=== PATIENT | male | born 1955 | race Caucasian/White ===

== ENCOUNTER → 2023-10-16 11:11 | Outpatient (REF) | payer OTHER, SELFPAY | LOC: DHCBC/DCA 11:11 | PROVIDERS: ATTENDING PHYSICIAN Internal Medicine Cardiovascular Disease; FAMILY PHYSICIAN Family Medicine Sports Medicine | DX: I48.91 Unspecified atrial fibrillation (principal) | CPT/HCPCS: 78452; 93017; A9500; J2785 ==

== ENCOUNTER → 2024-09-16 07:07 | Outpatient (REF) | payer OTHER, SELFPAY | LOC: HWRCS 07:07 | PROVIDERS: ATTENDING PHYSICIAN Internal Medicine Cardiovascular Disease; FAMILY PHYSICIAN Family Medicine Sports Medicine | DX: I10 Essential (primary) hypertension (principal) | CPT/HCPCS: 78452; 93017; A9500; J2785 ==

== ENCOUNTER 2024-11-19 21:57 | Day surgery (SDC) | payer OTHER, SELFPAY ==
[2024-11-19] VITALS (7 sets, daily range): BP systolic 116–171; BP diastolic 83–108; BMI 33.8
--- NOTE | 2024-11-19 20:38 | ED.GENMED ---
History of Present Illness
General
Chief Complaint: Foreign Body Ingestion
Time Seen by Provider: 11/19/24 20:30
History of Present Illness
History of Present Illness:
FOCUSED PAST MEDICAL HISTORY
- Reports history of need for emergent endoscopy in the past for food bolus
REVIEW OF OLD RECORDS
- Had nuclear stress test in 2023 here
Note:
CHIEF COMPLAINT(S)
Difficulty swallowing (dysphagia) leading to regurgitation and spitting up saliva after eating a roast beef sandwich.
HISTORY OF PRESENT ILLNESS
The patient is a 69-year-old male with a past medical history significant for atrial fibrillation, currently on anticoagulation therapy with Rivaroxaban (Xarelto), presented to the emergency department approximately two hours after experiencing
difficulty swallowing while eating a roast beef sandwich. The patient reports a sensation of food being lodged in the esophagus, causing him to spit up saliva intermittently. He describes having similar episodes in the past, where the lodged food
would eventually 'work its way down.' However, in a prior instance more than six years ago, intervention was necessary, as indicated by the patient having undergone a procedure by Dr. Dutton in [place]. He expressed that he is avoiding lying down due
to frequent need to expectorate every 15-20 minutes. No pain in the abdomen was reported, but he describes a feeling of pressure localized around the throat area.
The patient quotes, 'It feels like its sitting on top of the food stuck there,' indicating intermittent episodes of spitting saliva. The ER team plans to administer intravenous glucagon to relax the esophageal muscle, alongside ondansetron for
nausea. The patient is also set to receive IV fluids. The attending physician plans to consult with a cannery tender engineer to discuss further management options.
MEDICATIONS
Rivaroxaban (Xarelto) for atrial fibrillation.
REVIEW OF SYSTEMS
- Gastrointestinal: Reports difficulty swallowing and regurgitation; denies abdominal pain but notes a sensation of pressure in the throat.
- Oral Cavity: Reports spitting up saliva intermittently.
PHYSICAL EXAM
General: Alert, in mild distress related to concerns of sensation of esophageal food bolus and chest
Skin: Warm, dry.
Head: Normocephalic, atraumatic.
Neck: Supple, trachea midline.
Eyes, Ears, Nose, Mouth, and Throat: Oral mucosa moist.
Cardiovascular: Normal peripheral perfusion, No edema.
Respiratory: Respirations are non-labored.
Gastrointestinal: Abdomen nondistended. Soft abdomen, no tenderness
Back: Normal range of motion, Normal alignment.
Musculoskeletal: Normal range of motion, normal strength.
Neurological: Alert and oriented to person, place, time, and situation, No focal neurological deficit observed.
Psychiatric: Cooperative, appropriate mood & affect.
PLAN
- Initiate IV access and administer intravenous glucagon to relax the esophageal muscle, with a follow-up dose in 30 minutes if necessary.
- Administer ondansetron for nausea control.
- Start IV fluid therapy for hydration.
- Consult with a cannery tender engineer to discuss the necessity of potential endoscopy.
- Monitor patients response to treatment and prepare for possible intervention if symptoms do not resolve.
DIFFERENTIAL DIAGNOSIS
The Differential Diagnosis includes, in no particular order and is not limited to:
1. Esophageal obstruction due to food impaction
2. Esophageal stricture
3. Eosinophilic esophagitis
4. Esophageal spasm
5. Achalasia
6. Gastroesophageal reflux disease (GERD)
7. Malignancy of the esophagus
8. Schatzki ring
9. Zenkers diverticulum
10. Esophageal web
Disposition:
SUMMARY OF ENCOUNTER
The patient, a 69-year-old male with a history of atrial fibrillation on rivaroxaban, presented to the emergency department with difficulty swallowing following the consumption of a roast beef sandwich. He experienced a sensation of food being
lodged in the esophagus, leading to regurgitation and spitting up saliva. Initial management included the administration of intravenous glucagon to relax the esophageal muscle, but the patient still reported a sensation of abnormality. Attempts to
drink water resulted in regurgitation, indicating the patient was unable to tolerate oral intake. Given the persistence of symptoms, it was decided by Dr. Vergara to perform an endoscopy.
DISPOSITION
Admit
ASSESSMENT
Esophageal obstruction due to food impaction possibly necessitating an endoscopy for resolution.
EMERGENCY TREATMENTS ADMINISTERED
Intravenous glucagon
MANAGEMENT OF THE PATIENTS CARE WAS DISCUSSED WITH
Consultation with Dr. Narendra Grullon, cannery tender engineer, who has decided to come in for an endoscopy due to unresolved symptoms despite initial pharmacological intervention.
PLAN
Administer an additional dose of intravenous glucagon. Proceed with endoscopy as planned by the cannery tender engineer for further evaluation and potential removal of the impaction.
INDEPENDENT REVIEW OF LABS AND INTERPRETATION OF TESTS
My independent review of labs indicates they are unremarkable.
MEDICATION RECONCILIATION
Glucagon administered intravenously in the emergency department
MEDICAL DECISION MAKING
-Complexity of Data Reviewed: Chronic conditions affecting care include atrial fibrillation. Differential diagnosis includes esophageal obstruction due to food impaction, esophageal stricture, eosinophilic esophagitis, esophageal spasm, achalasia,
GERD, malignancy of the esophagus, Schatzki ring, Zenkers diverticulum, and esophageal web.
-Data:
Category 3
Discussion of management with Dr. Narendra Grullon, cannery tender engineer, regarding the need for endoscopy due to unresolved symptoms after glucagon administration.
DIAGNOSIS
Esophageal obstruction (K22.2)
EKG
A-fib, rate controlled, nonspecific ST abnormality
LABS
- CBC and chemistries unremarkable
UPDATE
- I notified Dr. Vergara, on-call for GI at 8:38 PM.
-After glucagon, I tried giving him water but he could not tolerate p.o.
- She ultimately decided to to take patient to the GI lab
Phy Exam
Physical Exam
Physical Exam:
See HPI
Course
Orders/Labs/Results
Orders:
Orders
11/19/24 20:30
0.9% Sodium Chloride 1000 ml [Nss] 1,000 ml IV BOLUS
Glucagon [GlucaGen] 1 mg IV NOW STA
Ondansetron Injectable [Zofran] 4 mg IV NOW STA
11/19/24 20:35
Glucagon [GlucaGen] 1 mg IV NOW STA
11/19/24 20:39
Complete Blood Count/With Diff Urgent
Comprehensive Metabolic Panel Urgent
11/19/24 21:16
EKG [Electrocardiogram (*1)] Urgent
Reason for Study: Other
Other Reason for Exam: Afib for endoscopy
Cardiology Consult: Leonardo Rocha
11/19/24 21:17
EKG- Treatment ONCE
Abnormal Lab Results
11/19/24
20:39
MCH 31.2 H pg
(27.0-31.0)
Absolute Monos (auto) 0.8 H 10^3/uL
(0.1-0.6)
Chloride 109 H mmol/L
(98-107)
Glucose 103 H mg/dl
(70-99)
ALT 55 H U/L
(0-50)
11/19/24 20:39
11/19/24 20:39
Vital Signs
Initial and Last Documented VS:
Initial Vital Signs
Temp Pulse Resp BP Pulse Ox
36.9 C 64 16 171/108 95
11/19/24 19:50 11/19/24 19:50 11/19/24 19:50 11/19/24 19:50 11/19/24 19:50
Last Documented Vital Signs
Temp Pulse Resp BP Pulse Ox
36.9 C 64 16 171/108 95
11/19/24 19:50 11/19/24 19:50 11/19/24 19:50 11/19/24 19:50 11/19/24 20:39
*Pulse Oximetry
SaO2: 95
Oxygen Mode of Delivery: Room air
Patient hypoxic: no
*Critical Care Note
Total Time (30-74mins, 75-104mins- exclusive of procedures): Not Applicable
ED Attending Note
-
Portions of this chart may have been created with voice recognition software.� Occasional wrong word or��sound alike� substitutions may have occurred due to the inherent limitations of voice recognition software.
Discharge Plan
Departure
Date of Disposition: 11/19/24
Time of Disposition: 21:27
Presentation/result/management discussed w/ accepting /: dr vergara
Referrals:
Lev Bustillos DO [Family Provider, Family Practice]
Interventions
Interventions:
*Risk Screen - Suicide Last Done: 11/19/24 19:52
*Neglect/Abuse Screening Last Done: 11/19/24 19:52
Discharge Date and Time
Print Language: GERMAN
[2024-11-19 20:47] LABS: Hematocrit 45.5 % (39.0-52.0); Hemoglobin 15.4 g/dL (13.0-18.0); Mean Corp Hgb Conc. 33.8 g/dL (33.0-37.0); Mean Corpuscular Volume 92.1 fL (80.0-94.0); Nucleated Red Blood Cells % 0 % (-); Platelet Count 211 10^3/uL (130-400); Red Cell Dist. Width 12.9 % (11.5-14.5)
[2024-11-19] MEDS: ZOFRAN 4 MG IV (20:51)
[2024-11-19] MEDS: NSS 1000 IV (20:52)
[2024-11-19 21:03] LABS: ALT (SGPT) 55 U/L (0-50); AST (SGOT) 37 U/L (17-59); Albumin 4.6 g/dl (3.5-5.0); Alkaline Phosphatase 64 U/L (38-126); Blood Urea Nitrogen 20 mg/dl (9-20); Calcium 9.4 mg/dl (8.4-10.2); Carbon Dioxide 25 mmol/L (22-30); Chloride 109 mmol/L (98-107); Glucose 103 mg/dl (70-99); Potassium 4.4 mmol/L (3.5-5.1); Sodium 141 mmol/L (135-145); Total Protein 7.4 g/dl (6.3-8.2); eGFR > 60.00
--- NOTE | 2024-11-19 21:37 | CON.GI ---
Consultation
-
Date/Time Consultation Requested: 11/19/2024
Date/Time Consultation Performed: 11/19/2024
Requesting Provider: Calderon Oliva
Performing Provider: Dr. Vergara
Reason for Consultation: Food impaction
Medical History
Chief Complaint / HPI
Chief Complaint: Food impaction
History of Present Illness:
69-year-old male with a past medical history significant for atrial fibrillation, currently on anticoagulation therapy with Rivaroxaban (Xarelto), presented to the emergency department approximately two hours after experiencing difficulty swallowing
while eating a roast beef sandwich. The patient reports a sensation of food being lodged in the esophagus, spit up saliva intermittently. He describes having similar episodes in the past, where the lodged food would eventually 'work its way down.'
However, in a prior instance more than eight years ago, EGD by Dr. Portillo in [place]. Had EGD abt 2-3 months ago, unremarkable as per pt. No PPI at this time. No NSAID's.
No abdominal pain, nausea, vomitng, heartburn, but has dysphagia with solids atleast once a month, No constipation/diarrhea, blood or black stool. Colonoscopy 2-3 yr ago unremarkable per pt
CBC wnl, CMP with slieghtly elevated ALT
Past Medical History
Past Medical History: Arrhythmias
Social History
Tobacco: Non-Smoker
Alcohol: Occasional
Family History
Family History: Reviewed & Not Pertinent
Allergies / Home Medications
Allergy/AdvReac Type Severity Reaction Status Date / Time
No Known Allergies Allergy Unverified 11/19/24 19:52
Review of Systems
-
All other systems: A 12 pt ROS was Negative except as stated above in HPI
Vital Signs
Temp Pulse Resp BP Pulse Ox
97.8 F 70 18 163/89 96
11/19/24 21:28 11/19/24 21:28 11/19/24 21:28 11/19/24 21:28 11/19/24 21:28
Physical Exam
Exam
GI: Soft, Non Tender and Non Distended
Results
WBC 8.3 10^3/uL (4.8-10.8) 11/19/24 20:39
Hgb 15.4 g/dL (13.0-18.0) 11/19/24 20:39
Hct 45.5 % (39.0-52.0) 11/19/24 20:39
MCV 92.1 fL (80.0-94.0) 11/19/24 20:39
Plt Count 211 10^3/uL (130-400) 11/19/24 20:39
Absolute Neuts (auto) 5.0 10^3/uL (1.4-6.5) 11/19/24 20:39
Sodium 141 mmol/L (135-145) 11/19/24 20:39
Potassium 4.4 mmol/L (3.5-5.1) 11/19/24 20:39
Chloride 109 mmol/L (98-107) H 11/19/24 20:39
Carbon Dioxide 25 mmol/L (22-30) 11/19/24 20:39
BUN 20 mg/dl (9-20) 11/19/24 20:39
Creatinine 1.1 mg/dL (0.7-1.3) 11/19/24 20:39
Calcium 9.4 mg/dl (8.4-10.2) 11/19/24 20:39
Total Bilirubin 0.5 mg/dl (0.2-1.3) 11/19/24 20:39
AST 37 U/L (17-59) 11/19/24 20:39
ALT 55 U/L (0-50) H 11/19/24 20:39
Alkaline Phosphatase 64 U/L (38-126) 11/19/24 20:39
Diagnostic Image Results:
Prior GI Procedures:
EGD:
Colonoscopy:
Assessment / Plan
-
69-year-old male with a past medical history significant for atrial fibrillation, currently on anticoagulation therapy with Rivaroxaban (Xarelto), presented to the emergency department approximately two hours after experiencing difficulty
swallowing while eating a roast beef sandwich. h/o solid food dysphagia for few years and EGD 2-3 months ago as per pt unremarkable with at [place].
-Food impaction
For EGD now
After the procedure, needs to f/u with [facility]
Start Omperazole 20mg po daily-OTC.
Avoid NSAID's
Take small bites, chew food well and stay upright with meals and drink water with dry foods and pills.
Follow up with [facility] GI for elevated ALT
-
-
Thank you for consultation and allowing me to participate in the patient's care. Please call the operations supervisor chemical cleaning GI physician during the after hours with any questions or concerns.
== END 2024-11-19 23:00 | disposition home or self-care (01) ==
LOC: SDS 21:57
PROVIDERS: ATTENDING PHYSICIAN Internal Medicine Gastroenterology; EMERGENCY PHYSICIAN Emergency Medicine; FAMILY PHYSICIAN Family Medicine Sports Medicine
DX: T18.128A Food in esophagus causing other injury, initial encounter (principal); T18.2XXA Foreign body in stomach, initial encounter; T18.3XXA Foreign body in small intestine, initial encounter; W44.F3XA Food entering into or through a natural orifice, initial encounter; K20.90 Esophagitis, unspecified without bleeding
CPT/HCPCS: 43247; 80053; 85025; 93005; 96361; 96374; 99284; J1610